=== PATIENT | female | born 2000 | race Caucasian/White ===

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

== ENCOUNTER 2019-03-26 13:42 | Emergency (ER) | payer MEDICAID ==
[2018-12-12 13:22] VITALS: BMI 22.0
== END 2019-03-26 14:15 | disposition left against medical advice (07) ==
LOC: D.ER 13:42
DX: R52 Pain, unspecified (principal)

== ENCOUNTER 2019-04-15 12:42 | Emergency (ER) | payer MEDICAID ==
[~2019-04-15] VITALS: Ht 157.5 cm; Wt 46.4 kg
[2019-04-15 12:47] VITALS: Ht 157.5 cm; Wt 46.4 kg
[2019-04-15 13:18] LABS: BASOPHILS 0.1 % (0-2); EOSINOPHILS 0.6 % (0-7); HEMATOCRIT 37.6 % (36.0-48.0); HEMOGLOBIN 11.8 g/dL (12-16); IMMATURE GRANULOCYTES 0.2 % (0-5); LYMPHOCYTES 14.1 % (15-50); MCH 26.9 pg (26.0-34.0); MCHC 31.4 g/dL (31.0-37.0); MCV 85.6 fL (80.0-100.0); MEAN PLATELET VOLUME 10.7 fL (7.4-10.4); MONOCYTES 11.4 % (2-11); NEUTROPHILS 73.6 % (40-80); RBC 4.39 10x6/uL (4.00-5.40); RDW 15.6 % (11.5-14.5); WBC 8.9 10x3/uL (4.8-10.8)
[2019-04-15 13:25] LABS: PLATELET COUNT 274 10x3/uL (130-400)
[2019-04-15 13:27] LABS: APPEARANCE CLOUDY (CLEAR); BILIRUBIN NEGATIVE (NEGATIVE); COLOR YELLOW (YELLOW); GLUCOSE 50 mg/dL (NEGATIVE); KETONE NEGATIVE (NEGATIVE); NITRITE POSITIVE (NEGATIVE); PH 5.5 (5.0-6.0); PROTEIN 3+ mg/dL (NEGATIVE); SPECIFIC GRAVITY 1.015 (1.005-1.020); UROBILINOGEN NORMAL (NORMAL)
[2019-04-15 13:28] LABS: BACTERIA MODERATE /hpf (NEGATIVE); EPITHELIAL CELLS 0-5 /hpf (0-5); WHITE CELLS - URINE >50 /hpf (NEGATIVE)
[2019-04-15 13:30] LABS: HCG URINE POSITIVE (NEGATIVE)
[2019-04-15 13:35] LABS: CALC OSMOLALITY 268 mosm/kg (275-300); CALCIUM 8.5 mg/dL (8.5-10.1); CARBON DIOXIDE 29.3 mmol/L (21.0-32.0); CHLORIDE - SERUM 100 mmol/L (98-107); CREATININE - SERUM 0.7 mg/dL (0.6-1.3); GLUCOSE 93 mg/dL (74-106); POTASSIUM - SERUM 3.7 mmol/L (3.5-5.1); SODIUM 135 mmol/L (136-145); UREA NITROGEN 10 mg/dL (7-18); eGFR NON AFRICAN AMERICAN > 90 mL/min (90-120)
[2019-04-15 13:41] LABS: ALBUMIN 2.7 g/dL (3.4-5.0); ALKALINE PHOSPHATASE 98 U/L (46-116); ALT (SGPT) 14 U/L (10-68); AMYLASE - SERUM 18 U/L (25-115); BILIRUBIN - TOTAL 0.25 mg/dL (0.2-1.3); LIPASE 54 U/L (73-393); PROTEIN - SERUM 6.2 g/dL (6.4-8.2)
[2019-04-15] MEDS ORDERED: PRENAVITE1 TAB PO (15:00)
[2019-04-15] MEDS ORDERED: MACROBID100 MG PO (15:00)
[2019-04-15] MEDS ORDERED: ZOFRAN4 MG PO (15:00)
[2019-04-15 15:16] VITALS: BP 101/66
== END 2019-04-15 15:17 | disposition home or self-care (01) ==
LOC: D.ER 12:42
PROVIDERS: Emergency Medicine
DX: O23.40 Unspecified infection of urinary tract in pregnancy, unspecified trimester (principal); Z3A.00 Weeks of gestation of pregnancy not specified; Z32.01 Encounter for pregnancy test, result positive